=== PATIENT | female | born 1965 | race Caucasian/White ===

== ENCOUNTER 2017-03-16 06:52 | Emergency (ER) | payer MEDICAID ==
[~2017-03-16] VITALS: Ht 160 cm; Wt 56.7 kg
[2017-03-16 07:00] VITALS: BP_SYST 124
[2017-03-16 07:36] LABS: BILIRUBIN,URINE NEGATIVE (NEGATIVE); BLOOD, URINE NEGATIVE (NEGATIVE); CLARITY/URINE SL HAZY (CLEAR); COLOR,URINE YELLOW (YELLOW); GLUCOSE,URINE NEGATIVE (NEGATIVE); KETONES,URINE NEGATIVE (NEGATIVE); LEUKOCYTE ESTERASE ,URINE TRACE (NEGATIVE); NITRITE, URINE NEGATIVE (NEGATIVE); PH,URINE 5.5 (5.0-8.0); PROTEIN URINE NEGATIVE (NEGATIVE); UROBILINOGEN,URINE 0.2 (0.2-1.0)
[2017-03-16] MEDS ORDERED: MECLIZINE HCL 25 MG TABLET (ANITVERT) PO ONE (07:45)
[2017-03-16 07:52] LABS: BACTERIA,URINE FEW /HPF (None Seen); RBC,URINE 0-3 /HPF (0-3)
[2017-03-16 08:01] LABS: BASOPHILS % (AUTO) 0.6 % (0.0-2.0); EOSINOPHILS # (AUTO) 0.2 K/uL (0.0-0.4); EOSINOPHILS % (AUTO) 3.7 % (0.0-4.0); HEMOGLOBIN 14.4 g/dL (12.0-16.0); LYMPHOCYTES # (AUTO) 1.1 K/uL (1.0-5.5); LYMPHOCYTES % (AUTO) 18.3 % (20.5-51.5); MEAN CORPUSCULAR HEMOGLOBIN 29 pg (27-31); MEAN CORPUSCULAR HGB CONC 33 % (32-36); MEAN CORPUSCULAR VOLUME 89 fL (79.0-98.0); MONOCYTES # (AUTO) 0.5 K/uL (0.0-1.0); MONOCYTES % (AUTO) 7.9 % (1.7-9.3); NEUTROPHILS # (AUTO) 4.3 K/uL (1.8-7.7); NEUTROPHILS % (AUTO) 69.5 % (40.0-70.0); PLATELET COUNT (AUTO) 218 K/uL (130-430); RED BLOOD CELL COUNT(AUTO) 4.94 MIL/uL (4.2-6.2); RED CELL DISTRIBUTION WIDTH 11.9 % (9.0-15.0); WHITE BLOOD COUNT (AUTO) 6.1 K/uL (4.8-10.8)
[2017-03-16 08:37] LABS: ALANINE AMINOTRANSFERASE 24 U/L (12-78); ALBUMIN 4.1 g/dL (3.4-4.8); ANION GAP 11 (5-15); ASPARTATE AMINOTRANSFERASE 17 U/L (10-37); CALCIUM 9.3 mg/dL (8.4-11.0); CHLORIDE 103 mmol/L (98-107); GLUCOSE 75 mg/dL (70-99); POTASSIUM 4.1 mmol/L (3.5-5.1); SODIUM SERUM 141 mmol/L (136-145); TOTAL BILIRUBIN 0.4 mg/dL (0.0-1.0); UREA NITROGEN, BLOOD 13 mg/dL (8-21)
[2017-03-16 09:07] LABS: GFR AFRICAN AMERICAN 98 mL/min (>90)
[2017-03-16 09:34] VITALS: BP_SYST 111
== END 2017-03-16 09:33 | disposition home or self-care (01) ==
LOC: SED 06:52
DX: H81.10 Benign paroxysmal vertigo, unspecified ear (principal); N39.0 Urinary tract infection, site not specified
CPT/HCPCS: 36415; 70450; 80053; 81000; 81025; 84484; 85025; 87086; 93005; 99285; J8597

== ENCOUNTER 2018-09-29 08:26 | Emergency (ER) | payer MEDICAID, OTHER ==
[~2018-09-29] VITALS: Ht 154.9 cm; Wt 62.6 kg
[2018-09-29 08:35] VITALS: BP_SYST 122
[2018-09-29] MEDS ORDERED: NACL 0.9% 1,000 ML IV ONE (08:51)
[2018-09-29] MEDS ORDERED: ONDANSETRON HCL 4 MG/2 ML VIAL IVP ONE (09:00)
[2018-09-29 09:19] LABS: BASOPHILS % (AUTO) 0.7 % (0.0-2.0); EOSINOPHILS # (AUTO) 0.1 K/uL (0.0-0.4); EOSINOPHILS % (AUTO) 2.4 % (0.0-4.0); HEMATOCRIT 43.8 % (36-48); HEMOGLOBIN 14.6 g/dL (12.0-16.0); LYMPHOCYTES # (AUTO) 1.2 K/uL (1.0-5.5); LYMPHOCYTES % (AUTO) 21.2 % (20.5-51.5); MEAN CORPUSCULAR HEMOGLOBIN 29 pg (27-31); MEAN CORPUSCULAR HGB CONC 33 % (32-36); MEAN CORPUSCULAR VOLUME 88 fL (79.0-98.0); MONOCYTES # (AUTO) 0.4 K/uL (0.0-1.0); MONOCYTES % (AUTO) 7.1 % (1.7-9.3); NEUTROPHILS % (AUTO) 68.6 % (40.0-70.0); PLATELET COUNT (AUTO) 223 K/uL (130-430); RED BLOOD CELL COUNT(AUTO) 4.96 MIL/uL (4.2-6.2); RED CELL DISTRIBUTION WIDTH 12.8 % (9.0-15.0); WHITE BLOOD COUNT (AUTO) 5.8 K/uL (4.8-10.8)
[2018-09-29 09:31] LABS: CALCIUM 9.3 mg/dL (8.4-11.0); CREATININE 0.71 mg/dL (0.55-1.30); POTASSIUM 3.6 mmol/L (3.5-5.1)
[2018-09-29 09:35] LABS: TOTAL BILIRUBIN 0.5 mg/dL (0.0-1.0)
[2018-09-29 10:14] LABS: BILIRUBIN,URINE NEGATIVE (NEGATIVE); BLOOD, URINE NEGATIVE (NEGATIVE); CLARITY/URINE CLEAR (CLEAR); COLOR,URINE YELLOW (YELLOW); GLUCOSE,URINE NEGATIVE (NEGATIVE); KETONES,URINE NEGATIVE (NEGATIVE); LEUKOCYTE ESTERASE ,URINE 1+ (NEGATIVE); NITRITE, URINE NEGATIVE (NEGATIVE); PROTEIN URINE NEGATIVE (NEGATIVE)
[2018-09-29 10:15] LABS: UROBILINOGEN,URINE 0.2 (0.2-1.0)
[2018-09-29 10:19] VITALS: BP_SYST 118
[2018-09-29 10:27] LABS: BACTERIA,URINE RARE /HPF (None Seen); RBC,URINE 0-3 /HPF (0-3)
== END 2018-09-29 10:19 | disposition home or self-care (01) ==
LOC: SED 08:26
DX: F43.23 Adjustment disorder with mixed anxiety and depressed mood (principal); R19.7 Diarrhea, unspecified
CPT/HCPCS: 36415; 80053; 81000; 82150; 83690; 85025; 96361; 96374; 99283; J2405; J7030

== ENCOUNTER 2018-10-30 07:14 | Emergency (ER) | payer OTHER ==
[~2018-10-30] VITALS: Ht 165.1 cm; Wt 62.1 kg
[2018-10-30 07:15] VITALS: BP_SYST 96
--- NOTE | 2018-10-30 07:15 | NUR ---
BROUGHT BACK TO BED #8 AND TRIAGED. REPORT GIVEN TO RUBIO
--- NOTE | 2018-10-30 07:35 | NUR ---
ER at bedside examining patient.
[2018-10-30] MEDS ORDERED: KETOROLAC TROMETHAMINE 60 MG/2 ML VIAL IM ONE (07:45)
[2018-10-30 07:59] LABS: BASOPHILS % (AUTO) 0.2 % (0.0-2.0); EOSINOPHILS % (AUTO) 0.2 % (0.0-4.0); HEMATOCRIT 38.9 % (36-48); LYMPHOCYTES # (AUTO) 0.4 K/uL (1.0-5.5); LYMPHOCYTES % (AUTO) 4.4 % (20.5-51.5); MEAN CORPUSCULAR HEMOGLOBIN 30 pg (27-31); MEAN CORPUSCULAR HGB CONC 34 % (32-36); MEAN CORPUSCULAR VOLUME 88 fL (79.0-98.0); MONOCYTES # (AUTO) 0.6 K/uL (0.0-1.0); MONOCYTES % (AUTO) 6.3 % (1.7-9.3); NEUTROPHILS # (AUTO) 8.9 K/uL (1.8-7.7); NEUTROPHILS % (AUTO) 88.9 % (40.0-70.0); PLATELET COUNT (AUTO) 192 K/uL (130-430); RED BLOOD CELL COUNT(AUTO) 4.41 MIL/uL (4.2-6.2); RED CELL DISTRIBUTION WIDTH 12.7 % (9.0-15.0)
--- NOTE | 2018-10-30 08:03 | NUR ---
Patient transported to radiology via WC, accompanied by rad staff.
--- NOTE | 2018-10-30 08:10 | NUR ---
Returned from radiology, back to [facility].
[2018-10-30 08:12] LABS: CALCIUM 8.8 mg/dL (8.4-11.0); CREATININE 0.74 mg/dL (0.55-1.30); POTASSIUM 3.8 mmol/L (3.5-5.1)
[2018-10-30 08:18] LABS: ALBUMIN 3.3 g/dL (3.4-4.8); PROTHROMBIN TIME 10.5 SECS (9.5-12.5); TOTAL BILIRUBIN 0.4 mg/dL (0.0-1.0)
--- NOTE | 2018-10-30 08:30 | NUR ---
Pt reports pain resolving no acute distress noted.
[2018-10-30 08:50] VITALS: BP_SYST 100
--- NOTE | 2018-10-30 08:50 | NUR ---
Patient given written and verbal discharge instructions and verbalizes understanding. ER MD discussed with patient the results and treatment provided. Patient in stable condition. ID arm band removed. Rx of motrin,cipro given. Patient educated on pain management and to follow up with PMD. Pain Scale 0. Opportunity for questions provided and answered. Medication side effect fact sheet provided.
== END 2018-10-30 08:50 | disposition home or self-care (01) ==
LOC: SED 07:14
DX: R19.7 Diarrhea, unspecified (principal)
CPT/HCPCS: 36415; 74176; 80053; 81002; 81025; 82150; 83605; 83690; 84703; 85025; 85610; 85730; 96374; 99284; J1885

== ENCOUNTER 2019-07-19 08:30 | Emergency (ER) | payer OTHER ==
[~2019-07-19] VITALS: Ht 162.6 cm; Wt 63.5 kg
[2019-07-19 08:41] VITALS: BP_SYST 115
--- NOTE | 2019-07-19 08:41 | NUR ---
Patient to ER bed 7 to gown for evaluation. Side rails up.
--- NOTE | 2019-07-19 08:48 | NUR ---
PT CAME TO ER FOR L EYE REDNESS, NO ITCHINESS OR REDNESS ASSOCIATED WITH EYE. PT VSS, RESTING IN [facility] AWAITING MD AT THIS TIME.
--- NOTE | 2019-07-19 08:49 | NUR ---
EVERARDO Cruz at bedside examining patient.
--- NOTE | 2019-07-19 08:55 | NUR ---
PT ASSESSED BY DR LAGOS. Debbie EYE RED, NO DISCHARGE, NO PAIN, PT DOES NOT PRESENT WITH ANY ACUTE DISTRESS, VSS. PT TO BE DISCHARGED BY PHYSICIAN IN STABLE CONDITION
[2019-07-19 09:04] VITALS: BP_SYST 115
--- NOTE | 2019-07-19 09:04 | NUR ---
Patient given written and verbal discharge instructions and verbalizes understanding. ER MD discussed with patient the results and treatment provided. Patient in stable condition. ID arm band removed.Patient educated on pain management and to follow up with PMD. Pain Scale 0/10. Opportunity for questions provided and answered.
== END 2019-07-19 09:04 | disposition home or self-care (01) ==
LOC: SED 08:30
DX: H11.32 Conjunctival hemorrhage, left eye (principal)
CPT/HCPCS: 99282

== ENCOUNTER 2019-08-31 09:57 | Emergency (ER) | payer OTHER ==
[~2019-08-31] VITALS: Ht 157.5 cm; Wt 63.5 kg
[2019-08-31 10:01] VITALS: BP_SYST 111
[2019-08-31] MEDS ORDERED: BACITRACIN 1 GM OINT TP ONE (10:15)
[2019-08-31] MEDS ORDERED: LIDOCAINE 1% 10 MG/ML, 20 ML MDV SUBCUT ONE (10:15)
[2019-08-31] MEDS ORDERED: DIPH-TET-PERTUS Vaccine 0.5 ML VIAL (ADACEL) I.M. ONE (10:15)
[2019-08-31] MEDS ORDERED: LIDOCAINE 1%, 20 ML MDV 20 ML ONE (10:33)
[2019-08-31 11:00] VITALS: BP_SYST 136
== END 2019-08-31 11:00 | disposition home or self-care (01) ==
LOC: SED 09:57
DX: L03.032 Cellulitis of left toe (principal)
CPT/HCPCS: 10060; 36415; 83605; 87040; 90471; 90715; 99283; J2001

== ENCOUNTER 2021-01-17 09:08 | Emergency (ER) | payer OTHER ==
[~2021-01-17] VITALS: Ht 152.4 cm; Wt 62.1 kg
[2021-01-17 09:14] VITALS: BP_SYST 114
[2021-01-17] MEDS ORDERED: IBUP-1969 PO (09:52)
== END 2021-01-17 09:55 | disposition home or self-care (01) ==
LOC: SED 09:08
DX: H00.015 Hordeolum externum left lower eyelid (principal)
CPT/HCPCS: 96372; 99282; 99284

== ENCOUNTER 2021-03-20 13:33 | Emergency (ER) | payer OTHER, SELFPAY ==
[~2021-03-20] VITALS: Ht 160 cm; Wt 59.0 kg
[~2021-03-20 13:33] MED LIST: IBUP-1969 PO
[2021-03-20 13:48] VITALS: BP_SYST 116
[2021-03-20] MEDS ORDERED: D-ME118S48 PO (16:07)
[2021-03-20 16:16] VITALS: BP_SYST 116
== END 2021-03-20 16:15 | disposition home or self-care (01) ==
LOC: SED 13:33
DX: J20.9 Acute bronchitis, unspecified (principal); Z79.899 Other long term (current) drug therapy; Z20.822 Contact with and (suspected) exposure to COVID-19
CPT/HCPCS: 36415; 71046-TC; 99284

== ENCOUNTER 2021-05-29 05:48 | Emergency (ER) | payer OTHER, SELFPAY ==
[~2021-05-29] VITALS: Ht 157.5 cm; Wt 54.4 kg
[~2021-05-29 05:48] MED LIST changes: +D-ME118S48 PO
[2021-05-29 06:00] VITALS: BP_SYST 126
--- NOTE | 2021-05-29 06:05 | NUR ---
Patient ambulatory to bed 6 for evaluation
--- NOTE | 2021-05-29 06:17 | NUR ---
ER at bedside examining patient.
--- NOTE | 2021-05-29 06:38 | NUR ---
PATIENT RESTING IN BED WITH EYES OPEN, NO C/O PAIN OR S/S OF DISCOMFORT. PATIENT'S CHEST RISE AND FALL SYMMETRICAL. BED IN LOW AND LOCKED POSITION.
--- NOTE | 2021-05-29 07:05 | NUR ---
REPORT GIVEN TO SHIFT NURSEMINERVA RN. SHIFT NURSE VERBALIZED UNDERSTANDING OF REPORT, NO FURTHER QUESTIONS. Addendum: 05/29/21 at 0707 by [id number] REPORT GIVEN TO SHIFT NURSEMELANY RN. SANDRA SHIFT NURSE VERBALIZED UNDERSTANDING OF REPORT, NO FURTHER QUESTIONS.
--- NOTE | 2021-05-29 07:10 | NUR ---
Report received from Jann HANNAH to assume care of patient
--- NOTE | 2021-05-29 07:30 | NUR ---
# 22 gauge angiocath placed to L forearm. Use of asceptic technique. Opsite placed over site. Blood return noted. Blood for lab drawn from site. Flushed with 10 cc of normal saline. No evidence of infiltration noted. Patient tolerated well.
--- NOTE | 2021-05-29 07:48 | NUR ---
Patient awake, alert and oriented x 3. Informed she is awaiting ultrasound and lab results before she can eat. Understanding verbalized. VSS on rn cardiac. Will continue to monitor closely.
[2021-05-29 07:54] LABS: BASOPHILS % (AUTO) 0.4 % (0.0-2.0); EOSINOPHILS # (AUTO) 0.1 K/uL (0.0-0.4); EOSINOPHILS % (AUTO) 0.6 % (0.0-4.0); HEMATOCRIT 40.6 % (36-48); HEMOGLOBIN 13.7 g/dL (12.0-16.0); LYMPHOCYTES # (AUTO) 1.2 K/uL (1.0-5.5); LYMPHOCYTES % (AUTO) 11.9 % (20.5-51.5); MEAN CORPUSCULAR HEMOGLOBIN 29 pg (27-31); MEAN CORPUSCULAR HGB CONC 34 % (32-36); MEAN CORPUSCULAR VOLUME 86 fL (79.0-98.0); MONOCYTES # (AUTO) 0.4 K/uL (0.0-1.0); MONOCYTES % (AUTO) 4.5 % (1.7-9.3); NEUTROPHILS % (AUTO) 82.6 % (40.0-70.0); PLATELET COUNT (AUTO) 252 K/uL (130-430); RED BLOOD CELL COUNT(AUTO) 4.69 MIL/uL (4.2-6.2); RED CELL DISTRIBUTION WIDTH 12.9 % (9.0-15.0); WHITE BLOOD COUNT (AUTO) 9.7 K/uL (4.8-10.8)
[2021-05-29 08:10] LABS: CALCIUM 8.8 mg/dL (8.4-11.0); CREATININE 0.6 mg/dL (0.55-1.30); POTASSIUM 3.6 mmol/L (3.5-5.1)
[2021-05-29 08:16] LABS: ALBUMIN 3.8 g/dL (3.4-4.8); TOTAL BILIRUBIN 0.3 mg/dL (0.0-1.0)
[2021-05-29 08:19] LABS: BILIRUBIN,URINE NEGATIVE (NEGATIVE); BLOOD, URINE NEGATIVE (NEGATIVE); CLARITY/URINE CLEAR (CLEAR); COLOR,URINE YELLOW (YELLOW); GLUCOSE,URINE NEGATIVE (NEGATIVE); KETONES,URINE NEGATIVE (NEGATIVE); LEUKOCYTE ESTERASE ,URINE 1+ (NEGATIVE); NITRITE, URINE NEGATIVE (NEGATIVE); PH,URINE 6.5 (5.0-8.0); PROTEIN URINE NEGATIVE (NEGATIVE); UROBILINOGEN,URINE 0.2 (0.2-1.0)
--- NOTE | 2021-05-29 08:53 | NUR ---
Ultrasound being done at bedside
[2021-05-29] MEDS ORDERED: ALPR0.5T PO ×2 (09:11→09:16)
[2021-05-29] MEDS ORDERED: OMEP20CA15 PO (09:13)
--- NOTE | 2021-05-29 09:21 | NUR ---
Dr Ponce to bedside to update patient on test results
--- NOTE | 2021-05-29 09:32 | NUR ---
Patient given written and verbal discharge instructions and verbalizes understanding. ER MD discussed with patient the results and treatment provided. Patient in stable condition. ID arm band removed. IV catheter removed intact and dressing applied, no active bleeding. Rx of Xanax and Omeprazole given. Patient educated on pain management and to follow up with PMD. Pain improved. Opportunity for questions provided and answered. Medication side effect fact sheet provided.
[2021-05-29 09:33] VITALS: BP_SYST 122
[2021-05-29 09:54] LABS: BACTERIA,URINE MODERATE /HPF (None Seen); RBC,URINE 0-3 /HPF (0-3)
== END 2021-05-29 09:32 | disposition home or self-care (01) ==
LOC: SED 05:48
DX: K29.70 Gastritis, unspecified, without bleeding (principal); F41.9 Anxiety disorder, unspecified; Z79.899 Other long term (current) drug therapy
CPT/HCPCS: 36415; 76700-TC; 80053; 81000; 82150; 83605; 83690; 84703; 85025; 87086; 99284

== ENCOUNTER → 2021-11-09 | Emergency (ER) | payer OTHER ==
[~2021-11-09] VITALS: Ht 157.5 cm; Wt 54.4 kg
[~2021-11-09] MED LIST changes: +ALPR0.5T PO; +NITR-85 PO; +OMEP20CA15 PO; +PHEN-727 PO
[2021-11-09 22:10] VITALS: BP_SYST 108
--- NOTE | 2021-11-09 22:10 | NUR ---
Patient triaged and placed in waiting room. VSS and patient appears in no acute distress at this time.awaiting available bed, and MD notified of need for MSE.
--- NOTE | 2021-11-09 22:45 | NUR ---
ER Dr.DELA CORNELIUS at bedside examining patient.
--- NOTE | 2021-11-09 23:38 | NUR ---
Patient given written and verbal discharge instructions and verbalizes understanding. ER MD discussed with patient the results and treatment provided. Patient in stable condition. ID arm band removed. Rx of IBUPROFEN,MACROBID,PYRIRIUM given. Patient educated on pain management and to follow up with PMD. Pain Scale 3/10. Opportunity for questions provided and answered. Medication side effect fact sheet provided.
[2021-11-09 23:44] VITALS: BP_SYST 102
[2021-11-09 23:46] LABS: BILIRUBIN,URINE NEGATIVE (NEGATIVE); CLARITY/URINE CLEAR (CLEAR); COLOR,URINE YELLOW (YELLOW); GLUCOSE,URINE NEGATIVE (NEGATIVE); KETONES,URINE NEGATIVE (NEGATIVE); LEUKOCYTE ESTERASE ,URINE TRACE (NEGATIVE); NITRITE, URINE NEGATIVE (NEGATIVE); PROTEIN URINE NEGATIVE (NEGATIVE); UROBILINOGEN,URINE 0.2 (0.2-1.0)
[2021-11-09 23:47] LABS: BLOOD, URINE TRACE (NEGATIVE)
[2021-11-09 23:56] LABS: BACTERIA,URINE MODERATE /HPF (None Seen); RBC,URINE 0-3 /HPF (0-3); WBC,URINE 0-3 /HPF (0-3)
== END | disposition home or self-care (01) ==
LOC: SED 22:00
DX: R30.0 Dysuria (principal); Z79.899 Other long term (current) drug therapy
CPT/HCPCS: 81000; 87086; 99283